=== PATIENT | male | born 1960 | race Caucasian/White ===

== ENCOUNTER → 2017-02-23 | Outpatient (CLI) | payer BC | LOC: BHSO 13:08 | DX: F33.1 Major depressive disorder, recurrent, moderate (principal) ==

== ENCOUNTER → 2017-09-28 | Outpatient (CLI) | payer BC | LOC: BHSO 14:37 | DX: F33.42 Major depressive disorder, recurrent, in full remission (principal) | CPT/HCPCS: G0463 ==

== ENCOUNTER → 2018-05-20 | Outpatient (CLI) | payer BC | LOC: BHSO 15:14 | DX: F33.42 Major depressive disorder, recurrent, in full remission (principal) | CPT/HCPCS: G0463 ==

== ENCOUNTER → 2018-12-02 | Outpatient (CLI) | payer BC | LOC: BHSO 15:10 | DX: F33.42 Major depressive disorder, recurrent, in full remission (principal) | CPT/HCPCS: G0463 ==

== ENCOUNTER 2019-05-08 12:57 | Outpatient (RCR) | payer OTHER | END 2019-08-01 | disposition home or self-care (01) | LOC: WSOH | DX: S05.90XD Unspecified injury of unspecified eye and orbit, subsequent encounter (principal); Z87.891 Personal history of nicotine dependence; F41.8 Other specified anxiety disorders; Y99.0 Civilian activity done for income or pay ==

== ENCOUNTER → 2019-06-15 | Outpatient (CLI) | payer BC | LOC: BHSO 14:55 | DX: F33.42 Major depressive disorder, recurrent, in full remission (principal) | CPT/HCPCS: G0463 ==

== ENCOUNTER 2019-11-24 08:32 | Day surgery (SDC) | payer BC ==
[~2019-11-24] VITALS: Ht 182.9 cm; Wt 85.1 kg
[2019-11-24] MEDS ORDERED: LAMICTAL200 MG PO (09:36)
[2019-11-24] MEDS ORDERED: LEXAPRO 10MG10 MG PO (09:37)
[2019-11-24 09:40] VITALS: BP 118/78; PULSE 63; TEMP 98.4
[2019-11-24] MEDS ORDERED: NORCO 325 MG-51 TAB PO (12:15)
[2019-11-24 12:55] VITALS: BP 117/99; PULSE 66; TEMP 97.9
--- NOTE | 2019-11-24 12:55 | NUR ---
Pt to [facility] via cart from PACU. Pt awake and alert. Pt c/o pain with movement. Denies severe pain or nausea. in room. Bandaids to abdomen are clean, dry, and intact. Pt tolerating water without difficulties. Applesauce and coffee given per pt request. Pt appears to be having residual effects from Ketamine given during the procedure, but is oriented x3. Will continue to monitor. Call light within reach. Bedrails up x2.
[2019-11-24 13:10] VITALS: BP 111/73; PULSE 58
--- NOTE | 2019-11-24 13:10 | NUR ---
Pt continues to rest. Denies needs. Tolerating po food and fluids without diffiuclties.
[2019-11-24 13:16] VITALS: TEMP 97.1
[2019-11-24 13:25] VITALS: BP 1014/74; PULSE 52
--- NOTE | 2019-11-24 13:25 | NUR ---
Pt continues to rest. Denies needs. Call light within reach.
[2019-11-24 13:40] VITALS: BP 101/68; PULSE 78
--- NOTE | 2019-11-24 13:40 | NUR ---
[place] 5/325mg PO given to pretreat for pain. Pt has an hour commute home. Denies further needs. Call light within reach.
--- NOTE | 2019-11-24 14:10 | NUR ---
Pt up to restroom with stand by assistanct. Pt voids without difficulties. Pt back to room. Assisted with dressing by his .
--- NOTE | 2019-11-24 14:20 | NUR ---
Discharge instructions reviewed. Pt voices understanding. IV site discontinued with all parts intact. Pt escorted to private car via wheel chair. Pt accompanied home by his .
== END 2019-11-24 14:23 | disposition home or self-care (01) ==
LOC: SDCO 08:32
DX: K40.90 Unilateral inguinal hernia, without obstruction or gangrene, not specified as recurrent (principal); D17.6 Benign lipomatous neoplasm of spermatic cord; F41.9 Anxiety disorder, unspecified; F33.0 Major depressive disorder, recurrent, mild; Z87.891 Personal history of nicotine dependence; Z88.0 Allergy status to penicillin; Z79.51 Long term (current) use of inhaled steroids; G47.33 Obstructive sleep apnea (adult) (pediatric); Z20.828 Contact with and (suspected) exposure to other viral communicable diseases
CPT/HCPCS: C1781; J1100; J1885; J2405; J2704; J3010; J7120

== ENCOUNTER → 2019-12-22 | Outpatient (CLI) | payer BC ==
[~2019-12-22] MED LIST: LAMICTAL200 MG PO; LEXAPRO 10MG10 MG PO; NORCO 325 MG-51 TAB PO
== END ==
LOC: BHSO 15:46
DX: F33.41 Major depressive disorder, recurrent, in partial remission (principal)
CPT/HCPCS: G0463

== ENCOUNTER → 2020-02-20 | Outpatient (CLI) | payer BC | LOC: BHSO 15:48 | DX: F41.1 Generalized anxiety disorder (principal) | CPT/HCPCS: G0463 ==